=== PATIENT | female | born 1940 | race African-American/Black ===

== ENCOUNTER 2020-08-06 17:31 | Inpatient (IN) ==
[2020-08-06] MEDS ORDERED: SODIUM CHLORIDE 0.9% 500 ML IV STA (18:34)
[2020-08-06 18:41] LABS: Basophils % 0.1 % (0.0-0.8); Hematocrit 35.9 VOL% (35.7-47.0); Hemoglobin 11.4 GM/DL (12.0-16.0); Immature Granulocytes % 0.4 %; Immature Granulocytes Absolute 0.03 #; Lymphocytes # 1.1 10*3/uL (1.4-4.0); Lymphocytes % 15.7 % (21.3-54.2); Mean Corpuscular HGB Conc 31.8 GM/DL (32-36); Mean Corpuscular Volume 87.1 FL (87-102); Mean Platelet Volume 12.8 FL (9.6-12.0); Monocytes % 4.7 % (1.7-12.7); Neutrophils % 79.1 % (38.7-73.9); Platelet Count 174 T/CUMM (130-400); Red Blood Count 4.12 MC/CUMM (3.8-5.5); Red Cell Distribution Width 16.6 % (9.3-17.3); White Blood Count 6.8 T/CUMM (4-12)
[2020-08-06 18:56] LABS: Alanine Aminotransferase 28 U/L (13-56); Albumin 2.8 G/DL (3.4-5.0); Alkaline Phosphatase 55 U/L (45-117); Aspartate Amino Transferase 43 U/L (0-37); Blood Urea Nitrogen 9 MG/DL (7-18); Calcium 8.7 MG/DL (8.5-10.1); Estimated Glom Filtration Rate 120 ML/MIN; Glucose 157 MG/DL (74-106); Osmolality,Calculated 287.8 MOS/KG (273-304); Total Protein 8.2 G/DL (6.4-8.3); Troponin I < 0.015 NG/ML (0.00-0.045)
[2020-08-06 18:59] LABS: PT Patient Result 49.7 SECS (9.8-11.9)
[2020-08-06] MEDS ORDERED: POTASSIUM CHLORIDE 20 MEQ TABLET PO STA (19:19)
[2020-08-06] MEDS ORDERED: PIPERACILLIN/TAZOBACTAM 3,375 MG in SODIUM CHLORIDE 0.9% 100 ML IV STA (19:40)
[2020-08-06 19:46] LABS: Band Neutrophils 3 % (0-10); Eosinophils 1 % (0-10); Lymphocytes 10 % (20-55); Platelet Estimate Adequate; Segmented Neutrophils 81 % (50-85); Total Cells Counted 100
[2020-08-06 19:55] LABS: Bilirubin,Urine Negative (Negative); Blood, Urine Small mg/dL (Negative); Glucose,Urine (UA) Negative (Negative); Hyaline Casts,Urine 1 /LPF (0-3); Ketones,Urine 80 mg/dL (Negative); Mucus,Urine Occasional /LPF (Occasional); Nitrite,Urine Negative (Negative); Protein,Urine 100 MG/DL; RBC,Urine 5 /HPF (0-4); Squamous Epithelial Cell,Urine Occasional /HPF (0-10); Urine Appearance Slightly Hazy (Clear); Urine Color Yellow (Yellow); WBC,Urine 1 /HPF (0-6)
[2020-08-06 19:57] LABS: Barbiturates Screen,Urine Negative (Negative); Benzodiazepines Screen,Urine Negative (Negative); Cannabinoid Screen,Urine Negative (Negative); Opiate Screen,Urine Positive (Negative); Phencyclidine Screen,Urine Negative (Negative)
[2020-08-06] MEDS ORDERED: ONDANSETRON 4 MG/2 ML VIAL IV PRN (22:35)
[2020-08-06] MEDS ORDERED: ACETAMINOPHEN 325 MG TABLET PO PRN (22:35)
[2020-08-06] MEDS ORDERED: hydrALAZINE 20 MG/1 ML VIAL IV PRN (22:35)
[2020-08-06] MEDS ORDERED: DEXTROSE 50% 25 GM/50 ML VIAL IV PRN (22:35)
[2020-08-06] MEDS ORDERED: GLUCAGON 1 MG VIAL IM PRN (22:35)
[2020-08-06] MEDS ORDERED: NICOTINE 21 MG/24 HR PATCH TRANSDERM PRN (22:35)
[2020-08-06 23:16] LABS: ABG Base Excess 8.4 MMOL/L (-2.5-2.5); ABG HCO3 31.9 MMOL/L (20-26); ABG PH 7.474 (7.35-7.45); ABG PO2 55.3 MM HG (80-95); ABG TCO2 29.6 MMOL/L (23-27)
[2020-08-06] MEDS: SODIUM CHLORIDE 0.9% 1,000 ML IV SCH (23:30)
[2020-08-07] MEDS: INSULIN REGULAR 100 UNIT/ML SUBCUT SCH ×5 (00:03→23:39)
[2020-08-07] MEDS: POTASSIUM CHLORIDE RIDER 10 MEQ in PREMIX 1 EACH IV PRN ×7 (01:05→16:02)
[2020-08-07] MEDS: MORPHINE 4 MG/1 ML VIAL IV PRN ×2 (02:01→21:03)
[2020-08-07] MEDS: PIPERACILLIN/TAZOBACTAM 3,375 MG in SODIUM CHLORIDE 0.9% 100 ML IV SCH ×3 (03:50→20:54)
[2020-08-07 04:45] LABS: Basophils % 0.1 % (0.0-0.8); Hematocrit 31.5 VOL% (35.7-47.0); Hemoglobin 10.1 GM/DL (12.0-16.0); Immature Granulocytes % 0.5 %; Immature Granulocytes Absolute 0.04 #; Lymphocytes # 0.8 10*3/uL (1.4-4.0); Lymphocytes % 10.1 % (21.3-54.2); Mean Corpuscular HGB Conc 32.1 GM/DL (32-36); Mean Corpuscular Volume 86.8 FL (87-102); Mean Platelet Volume 13.1 FL (9.6-12.0); Monocytes % 4.3 % (1.7-12.7); Platelet Count 177 T/CUMM (130-400); Red Blood Count 3.63 MC/CUMM (3.8-5.5); Red Cell Distribution Width 16.4 % (9.3-17.3); White Blood Count 8.4 T/CUMM (4-12)
[2020-08-07 05:12] LABS: Albumin 2.4 G/DL (3.4-5.0); Bilirubin,Total 0.7 MG/DL (0.2-1.0); Calcium 8.2 MG/DL (8.5-10.1); Total Protein 7.3 G/DL (6.4-8.3)
[2020-08-07 05:15] LABS: Hypochromasia 1+; Platelet Estimate Adequate
[2020-08-07] MEDS: SODIUM CHLORIDE 0.9% 1,000 ML IV SCH ×3 (06:31→23:00)
[2020-08-07] MEDS: MEMANTINE 10 MG TABLET PO SCH (08:50)
[2020-08-07] MEDS: DEXAMETHASONE 4 MG TABLET PO SCH (08:51)
[2020-08-07] MEDS: METOPROLOL TARTRATE 50 MG TABLET PO SCH (08:51)
[2020-08-07] MEDS: ASPIRIN EC 81 MG TABLET PO SCH (08:51)
[2020-08-07] MEDS: AZITHROMYCIN 250 MG TABLET PO SCH (08:51)
[2020-08-07] MEDS: ENOXAPARIN 40 MG/0.4 ML SYRINGE SUBCUT SCH (08:51)
[2020-08-07] MEDS: SKIN HEALING OINT (AQUAPHOR) 50 GM TUBE TOP SCH (09:34)
[2020-08-07] MEDS ORDERED: SODIUM CHLORIDE 0.9% 1,000 ML IV PRN (09:54)
[2020-08-07 10:53] LABS: ABG Base Excess 6.8 MMOL/L (-2.5-2.5); ABG HCO3 30.6 MMOL/L (20-26); ABG Oxygen Saturation 96.1 % (95-100); ABG PCO2 42.6 MM HG (35-48); ABG PH 7.472 (7.35-7.45); ABG PO2 77.6 MM HG (80-95); ABG TCO2 28.2 MMOL/L (23-27); Allen Test Positive
[2020-08-07] MEDS ORDERED: REMDESIVIR 200 MG in SODIUM CHLORIDE 0.9% 210 ML IV ONE (17:00)
[2020-08-07] MEDS: INSULIN GLARGINE 100 UNIT/ML SUBCUT SCH (21:03)
[2020-08-08] MEDS: PIPERACILLIN/TAZOBACTAM 3,375 MG in SODIUM CHLORIDE 0.9% 100 ML IV SCH ×3 (05:16→20:50)
[2020-08-08] MEDS: SODIUM CHLORIDE 0.9% 1,000 ML IV SCH ×4 (05:18→22:56)
[2020-08-08] MEDS: INSULIN REGULAR 100 UNIT/ML SUBCUT SCH ×3 (06:05→18:00)
[2020-08-08] MEDS: AZITHROMYCIN 250 MG TABLET PO SCH (08:22)
[2020-08-08] MEDS: METOPROLOL TARTRATE 50 MG TABLET PO SCH (08:23)
[2020-08-08] MEDS: MEMANTINE 10 MG TABLET PO SCH (08:23)
[2020-08-08] MEDS: DEXAMETHASONE 4 MG TABLET PO SCH (08:23)
[2020-08-08] MEDS: ASPIRIN EC 81 MG TABLET PO SCH (08:23)
[2020-08-08] MEDS: SKIN HEALING OINT (AQUAPHOR) 50 GM TUBE TOP SCH (08:23)
[2020-08-08] MEDS: ENOXAPARIN 40 MG/0.4 ML SYRINGE SUBCUT SCH (08:23)
[2020-08-08 08:27] LABS: Hemoglobin 9.8 GM/DL (12.0-16.0); Immature Granulocytes % 0.8 %; Immature Granulocytes Absolute 0.06 #; Lymphocytes # 0.7 10*3/uL (1.4-4.0); Lymphocytes % 10.3 % (21.3-54.2); Mean Corpuscular HGB Conc 31.6 GM/DL (32-36); Mean Corpuscular Volume 88.1 FL (87-102); Mean Platelet Volume 12.6 FL (9.6-12.0); Monocytes % 3.8 % (1.7-12.7); Neutrophils % 85.1 % (38.7-73.9); Platelet Count 200 T/CUMM (130-400); Red Blood Count 3.52 MC/CUMM (3.8-5.5); Red Cell Distribution Width 16.9 % (9.3-17.3); White Blood Count 7.1 T/CUMM (4-12)
[2020-08-08 08:41] LABS: Calcium 8.2 MG/DL (8.5-10.1); Osmolality,Calculated 291.8 MOS/KG (273-304)
[2020-08-08 08:47] LABS: Lymphocytes 8 % (20-55); Platelet Estimate Adequate; Segmented Neutrophils 89 % (50-85); Total Cells Counted 100
[2020-08-08 08:48] LABS: Hypochromasia 1+; Microcytosis Slight
[2020-08-08 15:38] LABS: Hematocrit 30.1 VOL% (35.7-47.0); Hemoglobin 9.7 GM/DL (12.0-16.0)
[2020-08-08] MEDS: REMDESIVIR 100 MG in SODIUM CHLORIDE 0.9% 230 ML IV SCH (17:01)
[2020-08-08] MEDS: INSULIN GLARGINE 100 UNIT/ML SUBCUT SCH (20:51)
[2020-08-09] MEDS: INSULIN REGULAR 100 UNIT/ML SUBCUT SCH ×4 (00:57→18:16)
[2020-08-09] MEDS: PIPERACILLIN/TAZOBACTAM 3,375 MG in SODIUM CHLORIDE 0.9% 100 ML IV SCH ×3 (04:30→20:41)
[2020-08-09 08:20] LABS: ABG HCO3 28.8 MMOL/L (20-26); ABG Oxygen Saturation 92.6 % (95-100); ABG PCO2 37.7 MM HG (35-48); ABG PH 7.488 (7.35-7.45); ABG PO2 62.2 MM HG (80-95); ABG TCO2 25.7 MMOL/L (23-27); Allen Test Positive
[2020-08-09] MEDS: SKIN HEALING OINT (AQUAPHOR) 50 GM TUBE TOP SCH (09:26)
[2020-08-09] MEDS: METOPROLOL TARTRATE 50 MG TABLET PO SCH (09:26)
[2020-08-09] MEDS: ASPIRIN EC 81 MG TABLET PO SCH (09:26)
[2020-08-09] MEDS: AZITHROMYCIN 250 MG TABLET PO SCH (09:26)
[2020-08-09] MEDS: MEMANTINE 10 MG TABLET PO SCH (09:26)
[2020-08-09] MEDS: DEXAMETHASONE 4 MG TABLET PO SCH (09:26)
[2020-08-09] MEDS: ENOXAPARIN 40 MG/0.4 ML SYRINGE SUBCUT SCH (09:26)
[2020-08-09] MEDS: SODIUM CHLORIDE 0.9% 1,000 ML IV SCH ×2 (09:48→17:01)
[2020-08-09 09:57] LABS: Basophils % 0.2 % (0.0-0.8); Hematocrit 28.6 VOL% (35.7-47.0); Hemoglobin 9.3 GM/DL (12.0-16.0); Immature Granulocytes Absolute 0.13 #; Lymphocytes # 0.9 10*3/uL (1.4-4.0); Lymphocytes % 12.9 % (21.3-54.2); Mean Corpuscular HGB Conc 32.5 GM/DL (32-36); Mean Corpuscular Volume 85.4 FL (87-102); Mean Platelet Volume 12.5 FL (9.6-12.0); Monocytes % 6.2 % (1.7-12.7); Neutrophils % 78.7 % (38.7-73.9); Platelet Count 216 T/CUMM (130-400); Red Blood Count 3.35 MC/CUMM (3.8-5.5); Red Cell Distribution Width 16.6 % (9.3-17.3); White Blood Count 6.6 T/CUMM (4-12)
[2020-08-09 10:17] LABS: Anisocytosis Slight; Band Neutrophils 1 % (0-10); Lymphocytes 18 % (20-55); Macrocytosis Slight; Platelet Estimate Normal; Segmented Neutrophils 79 % (50-85); Total Cells Counted 100
[2020-08-09] MEDS: REMDESIVIR 100 MG in SODIUM CHLORIDE 0.9% 230 ML IV SCH (16:32)
[2020-08-09] MEDS: INSULIN GLARGINE 100 UNIT/ML SUBCUT SCH (20:40)
[2020-08-10] MEDS: INSULIN REGULAR 100 UNIT/ML SUBCUT SCH ×5 (00:24→23:52)
[2020-08-10] MEDS: PIPERACILLIN/TAZOBACTAM 3,375 MG in SODIUM CHLORIDE 0.9% 100 ML IV SCH ×3 (04:01→21:08)
[2020-08-10 06:26] LABS: Calcium 8.2 MG/DL (8.5-10.1); Osmolality,Calculated 283.1 MOS/KG (273-304)
[2020-08-10] MEDS ORDERED: POTASSIUM CHLORIDE 20 MEQ TABLET PO PRN (07:20)
[2020-08-10] MEDS: SODIUM CHLORIDE 0.9% 1,000 ML IV SCH (07:38)
[2020-08-10] MEDS: ASPIRIN EC 81 MG TABLET PO SCH (09:34)
[2020-08-10] MEDS: SKIN HEALING OINT (AQUAPHOR) 50 GM TUBE TOP SCH (09:34)
[2020-08-10] MEDS: METOPROLOL TARTRATE 50 MG TABLET PO SCH (09:34)
[2020-08-10] MEDS: ENOXAPARIN 40 MG/0.4 ML SYRINGE SUBCUT SCH (09:34)
[2020-08-10] MEDS: DEXAMETHASONE 4 MG TABLET PO SCH (09:34)
[2020-08-10] MEDS: MEMANTINE 10 MG TABLET PO SCH (09:35)
[2020-08-10] MEDS: AZITHROMYCIN 250 MG TABLET PO SCH (09:35)
[2020-08-10] MEDS: POTASSIUM CHLORIDE RIDER 10 MEQ in PREMIX 1 EACH IV PRN ×2 (09:39→11:32)
[2020-08-10] MEDS ORDERED: INSULIN GLARGINE 100 UNIT/ML SUBCUT SCH (13:08)
[2020-08-10] MEDS: LOSARTAN 25 MG TABLET PO SCH (13:34)
[2020-08-10] MEDS: REMDESIVIR 100 MG in SODIUM CHLORIDE 0.9% 230 ML IV SCH (18:24)
[2020-08-11] MEDS: POTASSIUM CHLORIDE RIDER 10 MEQ in PREMIX 1 EACH IV PRN ×5 (02:14→06:33)
[2020-08-11 03:24] LABS: ABG HCO3 30.8 MMOL/L (20-26); ABG Oxygen Saturation 95.6 % (95-100); ABG PCO2 38.1 MM HG (35-48); ABG PH 7.511 (7.35-7.45); ABG PO2 72.3 MM HG (80-95); ABG TCO2 27.7 MMOL/L (23-27); Allen Test Positive
[2020-08-11 05:28] LABS: Basophils % 0.1 % (0.0-0.8); Hematocrit 28.8 VOL% (35.7-47.0); Hemoglobin 9.5 GM/DL (12.0-16.0); Immature Granulocytes % 2.5 %; Immature Granulocytes Absolute 0.18 #; Lymphocytes # 1.8 10*3/uL (1.4-4.0); Lymphocytes % 25.2 % (21.3-54.2); Mean Corpuscular Volume 84.2 FL (87-102); Mean Platelet Volume 12.7 FL (9.6-12.0); Monocytes % 6.6 % (1.7-12.7); NRBC # 0.04 10*3/uL; Neutrophils % 65.6 % (38.7-73.9); Platelet Count 292 T/CUMM (130-400); Red Blood Count 3.42 MC/CUMM (3.8-5.5); Red Cell Distribution Width 16.2 % (9.3-17.3); White Blood Count 7.1 T/CUMM (4-12)
[2020-08-11] MEDS: INSULIN REGULAR 100 UNIT/ML SUBCUT SCH ×2 (05:31→12:43)
[2020-08-11 05:50] LABS: Calcium 7.9 MG/DL (8.5-10.1); Osmolality,Calculated 289.6 MOS/KG (273-304)
[2020-08-11 06:04] LABS: Hypochromasia 1+; Lymphocytes 16 % (20-55); Microcytosis Slight; Ovalocytes Slight; Platelet Estimate Adequate; Segmented Neutrophils 72 % (50-85); Total Cells Counted 100
[2020-08-11] MEDS ORDERED: POTASSIUM CHLORIDE 20 MEQ TABLET PO ONE ×2 (07:35→14:00)
[2020-08-11] MEDS ORDERED: POTASSIUM CHLORIDE INJ 40 MEQ in SODIUM CHLORIDE 0.45% 1,000 ML IV SCH (08:00)
[2020-08-11] MEDS: ENOXAPARIN 40 MG/0.4 ML SYRINGE SUBCUT SCH (09:17)
[2020-08-11] MEDS: PIPERACILLIN/TAZOBACTAM 3,375 MG in SODIUM CHLORIDE 0.9% 100 ML IV SCH (09:17)
[2020-08-11] MEDS: MEMANTINE 10 MG TABLET PO SCH (09:18)
[2020-08-11] MEDS: METOPROLOL TARTRATE 50 MG TABLET PO SCH (09:18)
[2020-08-11] MEDS: ASPIRIN EC 81 MG TABLET PO SCH (09:18)
[2020-08-11] MEDS: DEXAMETHASONE 4 MG TABLET PO SCH (09:18)
[2020-08-11] MEDS: LOSARTAN 25 MG TABLET PO SCH (09:19)
[2020-08-11] MEDS: SKIN HEALING OINT (AQUAPHOR) 50 GM TUBE TOP SCH (09:19)
[2020-08-11] MEDS: REMDESIVIR 100 MG in SODIUM CHLORIDE 0.9% 230 ML IV SCH (11:51)
[2020-08-11 16:26] VITALS: BP 170/50
== END 2020-08-11 16:25 | DRG 177 ==
LOC: EDBD → EDUNIT# → N.ED 17:31 → N.EDINP 21:18 → N.2E 22:26
PROVIDERS: ADMIT Hospitalist; ATTEND Hospitalist